=== PATIENT | male | born 1965 | race African-American/Black ===

== ENCOUNTER 2018-12-10 15:54 | Observation (INO) ==
[2018-12-10] MEDS ORDERED: ONDANSETRON INJ 2 MG/ML 2 ML VIAL IV STA (16:17)
[2018-12-10] MEDS ORDERED: ASPIRIN CHEW 324 MG PO STA (16:17)
[2018-12-10] MEDS ORDERED: SODIUM CHLORIDE 0.9% 1000ML 2,000 ML IV SCH (16:30)
[2018-12-10 16:32] LABS: Alanine Aminotransferase 31 U/L (12-78); Albumin Level 4.1 gm/dl (3.4-5.0); Aspartate Aminotransferase 23 U/L (15-37); Blood Urea Nitrogen 15 mg/dl (7-18); Calcium 8.9 mg/dl (8.5-10.1); Carbon Dioxide 29 mmol/L (21-32); Chloride 105 mmol/L (98-107); Creatinine Clr Calc Pharmacy 93.9 ml/min; Est GFR (African American) 91.6; Glucose 82 mg/dl (70-99); Potassium 3.9 mmol/L (3.5-5.1); Sodium 139 mmol/L (136-145)
[2018-12-10 16:37] LABS: Albumin Globulin Ratio 1.1 (0.9-2); Alkaline Phosphatase 67 U/L (45-117); Bilirubin,Total 2.4 mg/dl (0.2-1); Globulin 3.6 gm/dl (2.5-4.0); Total Protein 7.7 gm/dl (6.4-8.2); Troponin I < 0.015 ng/ml (0-0.045)
--- NOTE | 2018-12-10 16:44 | XRay Report ---
XR chest 1V portable CLINICAL HISTORY: Chest Pain COMPARISON STUDY: No previous studies for comparison. FINDINGS: The bones soft tissues and hemidiaphragms are normal. The cardiomediastinal silhouette is n ormal. The lungs are clear. The pulmonary vasculature is normal. IMPRESSION: Negative chest. The above report was generated using voice recognition software. It may contain grammatical, syntax or spelling errors. Electronically signed by: Ismael Lamb M.D. 12/10/2018 4:43 PM
[2018-12-10 16:51] LABS: Basophils # (auto) 0.01 K/uL (0-0.2); Basophils % (auto) 0.3 %; Eosinophils # (auto) 0.03 K/uL (0-0.5); Eosinophils % (auto) 0.8 %; Hematocrit (blood only) 38.5 % (42-52); Hemoglobin 12.8 g/dL (14.0-18.0); Lymphocytes # (auto) 1.76 K/uL (1.2-3.4); Lymphocytes % (auto) 46.8 %; Mean Corpuscular Hgb Conc 33.2 g/dL (32-36); Mean Corpuscular Volume 84.6 fL (80-100); Mean Platelet Volume 10.7 fL (7.4-10.4); Monocytes # (auto) 0.21 K/uL (0.11-0.59); Monocytes % (auto) 5.6 %; Neutrophils # (auto) 1.75 K/uL (1.4-6.5); Neutrophils % (auto) 46.5 %; Platelet Count 189 K/uL (130-400); RDW Coefficient of Variation 13.5 % (11.5-14.5); RDW Standard Deviation 41.5 fL (36.4-46.3); Red Blood Count 4.55 M/uL (4.7-6.1); White Blood Count 3.76 K/uL (4.8-10.8)
--- NOTE | 2018-12-10 18:49 | History & Physical Report ---
Date of Service December 10, 2018 Assessment & Plan (1) AV block, Mobitz 2: Soft call on whether this is type II second-degree AV block. There are elements on telemetry that appear to be 3: 1 conduction of the P wave, but there are also elements of MN interval prolongation which would indicate a Mobitz type block. Attempted to call EP on the phone; however, I could not reach Dr. Fatima. Will admit to observation on telemetry, trend troponins and EKGs, get echo, and consult cardiology in the morning. (2) Hyperlipidemia: Continue statin. (3) DVT prophylaxis: SCDs - Low DVT risk per admission calculator History of Present Illness Primary Care Provider: ESTHELA Reymundo 53-year-old male with a history of hyperlipidemia who presents with bradycardia and possible heart block. Patient reports is been in his normal state of health. He went to his annual physical with the [facility] physician and was noted to be bradycardic. The physician ordered an EKG which showed bradycardia and possible heart block, and he was sent to the emergency department for evaluation. In the emergency department telemetry strip shows type I versus type II second-degree AV block. The patient's heart rate is approximately 50 bpm; however, it did rise to 75 bpm with some mild exercise. Patient reports occasional sharp, transient, left-sided chest pain, though he has no associated symptoms such as lightheadedness, dizziness, nausea, vomiting, short of breath, or diaphoresis. The pains usually last for couple seconds and go away without any inciting event. Allergies Allergy/AdvReac Type Severity Reaction Status Date / Time No Known Allergies Allergy Unverified 12/10/18 17:03 Home Medications Home Medications Medication Instructions Recorded Confirmed Type rosuvastatin 10 mg PO DAILY 12/10/18 12/10/18 History Past Med/Surg History Medical History Hyperlipidemia (Chronic) Surgical History H/O knee surgery Family History Mother Pacemaker Social History Preferred Language: Arabic Feels Safe at Home: Yes Smoking Status: Former smoker Review of Systems Review of Systems: All systems reviewed & are unremarkable except as noted in HPI & below Physical Exam Constitutional: WD/WN, vitals as above Eyes: EOM intact bilaterally; no conjunctival abnormality ENMT: external ear and nose normal, oropharynx normal Neck: trachea midline, no thyromegaly normal visual inspection Respiratory: normal respiratory effort, lungs clear to auscultation no respiratory distress Cardiovascular: Rate/Rhythm: regular rate and + bradycardic Heart Sounds: normal S1 and normal S2; no murmur Gastrointestinal (Abdomen): Inspection/Auscultation: abdomen normal to ins pection; abdomen not distended Musculoskeletal: no cyanosis or clubbing, extremities motor strength 5/5 Skin: no rashes, warm and dry Neurologic: moves all extremities and awake Psychiatric: Orientation: alert, oriented to person and cooperative Results & Data Vital Signs (Past 12 Hours) Vital Signs Temp Pulse Resp BP Pulse Ox 12/10/18 17:31 49 L 18 99 12/10/18 17:30 51 L 18 150/80 H 98 12/10/18 17:00 49 L 13 148/78 H 100 12/10/18 16:30 52 L 17 150/87 H 97 12/10/18 16:11 36.8 C 52 L 20 176/86 H 99 12/10/18 16:00 45 L 19 176/86 H 99 PG Care Time/CCT Total # of Minutes Spent Total Time Spent with Patient: Total time spent is greater than 50% in coordination of care (as documented) at patient's floor/unit and/or counseling patient:
[2018-12-10] MEDS ORDERED: ACETAMINOPHEN 325 MG TAB PO PRN (20:03)
--- NOTE | 2018-12-10 23:12 | Emergency Department Note ---
Entered by Olga De Jesus acting as a scribe for Terry Santoyo DO History of Present Illness General Chief complaint: Cardiac Assessment Stated complaint: CARDIAC ASSESSMENT Source: patient History of Present Illness Provider complaint: chest pain Onset (ago): day(s) 3 Location: chest and left Severity: similar to prior episodes Pain Consistency: + intermittent Associated symptoms: + other (-dizziness, -arm pain, -jaw pain) The patient is a 53 year old male who presents to the Emergency Room with complaints of intermittent chest pain. The patient states that he went to his annual check-up and the doctor noticed something wrong with his EKG and referred him to the ED. The patient states that he has had sharp left sided chest pain for the past 2-3 days. He reports that the episodes last several seconds. He states that he has been experiencing these episodes for the past several years which have become more frequent. He states that this happens 2 times each month. The patient denies any arm pain, jaw pain, or dizziness. He states he has high cholesterol. He denies any recent travel. He reports that he has not smoked in 10 years. Home Medications Home Medications Medication Instructions Recorded Confirmed Type rosuvastatin 10 mg PO DAILY 12/10/18 12/10/18 History Allergies Allergy/AdvReac Type Severity Reaction Status Date / Time No Known Allergies Allergy Unverified 12/10/18 17:03 Past Med/Surg History Medical History Hyperlipidemia (Chronic) Surgical History H/O knee surgery Family History Mother Pacemaker Social History Preferred Language: Singaporean Communication Ability: Effective Beliefs That Will Affect Care: None Current Living Situation Comment: Inmate Feels Safe at Home: Yes Smoking Status: Former smoker Hx Alcohol Use: No Hx Substance Use: No Review of Systems See HPI for pertinent positives & negatives. and A total of 10 systems reviewed and were otherwise negative Physical Exam Vital Signs Vital Signs - 24 hr 12/10/18 16:00 12/10/18 16:11 12/10/18 16:17 Temperature 36.8 C Temperature Source Oral Sepsis Recent Fever Within 48 Hours No Sepsis New/Unexplained Change in Mental Status No Sepsis Action Taken by Nursing No Action Required Pulse Rate 45 L 52 L Pulse Rate from SpO2 Sensor Respiratory Rate 19 20 Blood Pressure 176/86 H 176/86 H Blood Pressure Mean 116 116 Pulse Oximetry 99 99 Oxygen Delivery Method Room Air Room Air 12/10/18 16:30 12/10/18 17:00 12/10/18 17:30 Temperature Temperature Source Sepsis Recent Fever Within 48 Hours Sepsis New/Unexplained Change in Mental Status Sepsis Action Taken by Nursing Pulse Rate 52 L 49 L 51 L Pulse Rate from SpO2 Sensor Respiratory Rate 17 13 18 Blood Pressure 150/87 H 148/78 H 150/80 H Blood Pressure Mean 108 101 103 Pulse Oximetry 97 100 98 Oxygen Delivery Method Room Air Room Air Room Air 12/10/18 17:31 12/10/18 18:00 12/10/18 18:31 Temperature Temperature Source Sepsis Recent Fever Within 48 Hours Sepsis New/Unexplained Change in Mental Status Sepsis Action Taken by Nursing Pulse Rate 49 L 44 L 57 L Pulse Rate from SpO2 Sensor 49 L Respiratory Rate 18 18 20 Blood Pressure 153/81 H 176/82 H Blood Pressure Mean 105 113 Pulse Oximetry 99 99 100 Oxygen Delivery Method Room Air Room Air GENERAL: Sitting up in bed, shackled, in [facility] sweats, talking in full sentences. EYE EXAM: normal conjunctiva, left eye dilated 5 mm and reactive OROPHARYNX: no exudate, no erythema, lips, buccal mucosa, and tongue normal and mucous membranes are moist NECK: supple, no nuchal rigidity, no adenopathy, non-tender LUNGS: Clear to auscultation. Normal chest wall mechanics HEART: no murmurs, S1 normal and S2 normal ABDOMEN: abdomen soft, non-tender, normo-active bowel sounds, no masses, no rebound or guarding. BACK: Back is symmetrical on inspection and there is no deformity, no midline tenderness, no CVA tenderness. SKIN: no rashes and no bruising UPPER EXTREMITIES: upper extremities are grossly normal. Radial pulses equal bilaterally. LOWER EXTREMITIES: No pitting edema. Calves equal bilaterally. NEURO EXAM: Normal sensorium, cranial nerves II-XII grossly intact, normal speech, no gross weakness of arms, no gross weakness of legs. Course 1611: The patient was evaluated in room B8, and a complete history and physical examination were performed. 1749: I discussed the patient's case with Dr. Alvarez- [facility] Hospitalist, he will accept the patient for further evaluation. Consultations Consultation #1: Dr. Garner [facility] Hospitalist Time: 17:50 Administered Medications Discontinued Medications Aspirin (Aspirin) 324 mg PO NOW STA Stop: 12/10/18 16:18 Last Admin: 12/10/18 16:29 Dose: 324 mg Documented by: [id number] Sodium Chloride (Nss 1000ml) 2,000 mls @ 999 mls/hr IV .Q2H1M IFEOMA Stop: 12/10/18 18:30 Last Infusion: 12/10/18 18:30 Dose: 0 mls/hr Documented by: [id number] Admin: 12/10/18 16:29 Dose: 999 mls/hr Documented by: [id number] Ondansetron HCl (Zofran) 4 mg IV NOW STA Stop: 12/10/18 16:18 Last Admin: 12/10/18 16:29 Dose: 4 mg Documented by: [id number] Medical Decision Making Differential Diagnosis Differential diagnoses includes but is not limited to acute coronary syndrome, myocardial infarction, pericarditis, pulmonary embolus, aortic dissection, pneumonia, pneumothorax, musculoskeletal, shingles, esophageal. Medical Records Attestation: I reviewed the patient's medical records. Home Medications Current Medication List: was personally reviewed by me Laboratory Data Attestation: I reviewed the patient's lab results. Result diagrams: 12/10/18 16:00 12/10/18 16:00 Lab Results 12/10/18 12/10/18 Range/Units 16:00 16:00 WBC 3.76 L (4.8-10.8) K/uL RBC 4.55 L (4.7-6.1) M/uL Hgb 12.8 L (14.0-18.0) g/dL Hct 38.5 L (42-52) % MCV 84.6 (80-100) fL MCH 28.1 (25-34) pg MCHC 33.2 (32-36) g/dL RDW Std Deviation 41.5 (36.4-46.3) fL RDW Coeff of Dwayne 13.5 (11.5-14.5) % Plt Count 189 (130-400) K/uL MPV 10.7 H (7.4-10.4) fL Immature Gran % (Auto) 0.0 % Neut % (Auto) 46.5 % Lymph % (Auto) 46.8 % [place] % (Auto) 5.6 % Eos % (Auto) 0.8 % Baso % (Auto) 0.3 % Immature Gran # (Auto) 0.00 (0.00-0.02) K/uL Neut # (Auto) 1.75 (1.4-6.5) K/uL Lymph # (Auto) 1.76 (1.2-3.4) K/uL [place] # (Auto) 0.21 (0.11-0.59) K/uL Eos # (Auto) 0.03 (0-0.5) K/uL Baso # (Auto) 0.01 (0-0.2) K/uL Sodium 139 (136-145) mmol/L Potassium 3.9 (3.5-5.1) mmol/L Chloride 105 (98-107) mmol/L Carbon Dioxide 29 (21-32) mmol/L Anion Gap 5.0 (3-11) BUN 15 (7-18) mg/dl Creatinine 1.08 (0.6-1.4) mg/dl Est Cr Clr Drug Dosing 93.9 ml/min Est GFR ( Amer) 91.6 Est GFR (Non-Af Amer) 79.0 BUN/Creatinine Ratio 14.0 (10-20) Glucose 82 (70-99) mg/dl Calcium 8.9 (8.5-10.1) mg/dl Total Bilirubin 2.4 H (0.2-1) mg/dl AST 23 (15-37) U/L ALT 31 (12-78) U/L Alkaline Phosphatase 67 (45-117) U/L Troponin I < 0.015 (0-0.045) ng/ml Total Protein 7.7 (6.4-8.2) gm/dl Albumin 4.1 (3.4-5.0) gm/dl Globulin 3.6 (2.5-4.0) gm/dl Albumin/Globulin Ratio 1.1 (0.9-2) Lipase 87 (73-393) U/L Imaging Data Radiologist's Impression: Radiology results as stated below per my review and the radiologist's interpretation: XR chest 1V portable CLINICAL HISTORY: Chest Pain COMPARISON STUDY: No previous studies for comparison. FINDINGS: The bones soft tissues and hemidiaphragms are normal. The cardiome diastinal silhouette is normal. The lungs are clear. The pulmonary vasculature is normal. IMPRESSION: Negative chest. The above report was generated using voice recognition software. It may contain grammatical, syntax or spelling errors. Electronically signed by: Ismael Lamb M.D. 12/10/2018 4:43 PM ECG Data Attestation: I personally reviewed and interpreted this ECG as follows: Indication: chest pain Rate (beats per minute): 52 Rhythm: sinus bradycardia Findings: + other (normal axis) and + ST elevation (v2 with j point elevation in anterior and lateral leads) Blood Pressure Blood Pressure Findings: Elevated blood pressure Blood Pressure Disposition: further management by hospitalist JINNY Narrative Patient is a 53-year-old male who presents the ER with past medical history of hyperlipidemia referred in from the [facility] as the patient had chest pain 3 days ago had an EKG performed. EKG today showed recurrent concerning of arrhythmia and patient was transported here via EMS. IV was established blood work was obtained and showed a mild leukopenia at 3.7 thousand. No significant anemia. BMP along with LFTs bilirubin and lipase was remarkable for bilirubin of 2.4. Troponin was negative. Chest x-ray was unremarkable. EKG showed a sinus rhythm but rhythm strips from EMS showed a Mobitz type I along with what appeared to be a Mobitz type II. Discussed with cardiology and discussed with the hospitalist for observation due to the Mobitz type II. Impression & Plan AV block, Mobitz 1, AV block, Mobitz 2 Discharge Plan Visit Data *Final* Discharge Date/Time: 12/10/18 19:47 Chief Complaint: Cardiac Assessment Stated Complaint: CARDIAC ASSESSMENT ED Provider: Terry Santoyo Discharge Problem: AV block, Mobitz 1, AV block, Mobitz 2 Patient Disposition: Admitted As Inpatient Discharge Instructions Interventions: ED Discharge Assessment Last Done: 12/10/18 19:47 The scribe's documentation has been prepared under my direction and personally reviewed by me in its entirety. I confirm that the note above accurately reflects all work, treatment, procedures, and medical decision making performed by me.
[2018-12-11 07:06] LABS: Hematocrit (blood only) 39.1 % (42-52); Hemoglobin 13.1 g/dL (14.0-18.0); Mean Corpuscular Hgb Conc 33.5 g/dL (32-36); Mean Corpuscular Volume 85.4 fL (80-100); Mean Platelet Volume 10.2 fL (7.4-10.4); Platelet Count 166 K/uL (130-400); RDW Coefficient of Variation 13.5 % (11.5-14.5); RDW Standard Deviation 41.9 fL (36.4-46.3); Red Blood Count 4.58 M/uL (4.7-6.1); White Blood Count 3.46 K/uL (4.8-10.8)
[2018-12-11 07:37] LABS: BUN Creatinine Ratio 10.1 (10-20); Blood Urea Nitrogen 10 mg/dl (7-18); Carbon Dioxide 29 mmol/L (21-32); Chloride 107 mmol/L (98-107); Creatinine Clr Calc Pharmacy 98.5 ml/min; Est GFR (Non-African American) 83.7; Glucose 79 mg/dl (70-99); Magnesium 2.3 mg/dl (1.8-2.4); Sodium 140 mmol/L (136-145)
[2018-12-11 07:42] LABS: Troponin I < 0.015 ng/ml (0-0.045)
[2018-12-11] MEDS ORDERED: ROSUVASTATIN CALCIUM 10 MG TAB PO SCH (09:00)
--- NOTE | 2018-12-11 11:18 | Cardiology Consultation ---
Date of Consultation December 11, 2018 Assessment & Plan (1) AV block, Mobitz 1: Patient does have an element of conduction disease. 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 This is slightly unusual for a gentleman of his age without any known cardiac disease. Curiously, his mother did just receive a pacemaker. Whether he has some familial related conduction disease is unclear. He does not appear to suffer from a cardiomyopathy or other cardiac disease. I think his overall prognosis is good. Without any symptoms at this point, there is no clear indication for permanent pacing. However, given his age and degree of conduction disease I do suspect that over time he will develop some symptoms related to his AV node dysfunction and require pacing. We did discuss symptoms of which to be aware which would include an element of exertional intolerance, dizziness, lightheadedness or syncope. Clearly, agents which reduce av trinity function such as beta blockers, digoxin or calcium channel acosta should be avoided. At this point it seems that he could be safely discharged. Follow up in our clinic perhaps every 6 months would be reasonable to evaluate symptoms and conduction. Present on Admission?: Yes History of Present Illness Reason for Consultation: Bradycardia, conduction disease Requesting Physician: Antonio Attending Physician: Jaswant Alvarez MD History of Present Illness The patient is a 53-year-old gentleman without a known history of cardiac disease who [facility] for [facility]. The patient did state at that time that several weeks prior he had had symptoms of chest discomfort. This was a fairly focal discomfort in the precordial area. He states that it lasted for a few seconds and resolved. It was not associated with activity. He thinks he may have had 3 of these episodes over the preceding weeks. He has not had any recently. Based on his history and relative bradycardia an EKG was obtained. This was abnormal suggesting an element of conduction disease. He is therefore sent to our facility for evaluation. The patient is a some presently active individual. He exercises routinely and claims to be able to jog 1-2 miles on a regular basis. He did not report any symptoms associated with exertion. He states that at extremes of exertion he will have some dyspnea but he feels this is appropriate for his level of activity. He did not report any symptoms of chest discomfort or chest tightness associated with exercise. He denied symptoms of dizziness or lightheadedness. He cannot recall suffering a syncopal episode. He does have a rare and fleeting sensation of a palpitation, but again this last a few seconds and is not a ssociated with any specific activity. Allergies Allergy/AdvReac Type Severity Reaction Status Date / Time No Known Allergies Allergy Unverified 12/10/18 17:03 Home Medications Home Medications Medication Instructions Recorded Confirmed Type rosuvastatin 10 mg PO DAILY 12/10/18 12/10/18 History Patient History Medical History Hyperlipidemia (Chronic) Surgical History H/O knee surgery Family History Mother Pacemaker Social History Preferred Language: Telugu Communication Ability: Effective Beliefs That Will Affect Care: None Current Living Situation Comment: Inmate Feels Safe at Home: Yes Smoking Status: Former smoker Hx Alcohol Use: No Hx Substance Use: No Review of Systems Review of Systems: All systems reviewed & are unremarkable except as noted in HPI & below No lower extremity edema. No recent constitutional symptoms. No recent fevers or chills. No orthopnea. Physical Exam Physical Exam: The patient is alert and oriented. Mood and affect appeared normal. He answered all questions appropriately. HEENT: Pupils are equal and reactive to light and accommodation. Extraocular movements are intact. The sclerae are anicteric. Neuro: Cranial nerves intact Neck: Patient's neck is supple. He has palpable carotid pulses bilaterally without bruits on auscultation. There is no evidence of jugular venous distention. The thyroid is not enlarged. Lungs: Clear to auscultation bilaterally. He has good air movement without use of accessory muscles. No rales wheezes or rhonchi. Cardiac: Heart demonstrates a regular rate and rhythm with occasional skipped beat. Normal S1 and S2. No murmurs on examination. Pulses: The patient has palpable radial pulses bilaterally that are equal in intensity Extremities: There was no evidence of hypoperfusion. There is no cyanosis or clubbing. There is no edema. Skin: I did not appreciate any rashes on examination today. Results & Data Vital Signs (Past 12 Hours) Vital Signs Temp Pulse Pulse Resp BP Pulse Ox 12/11/18 11:06 36.6 C 50 L 18 132/81 98 12/11/18 07:16 46 L 12/11/18 07:06 36.6 C 47 L 16 150/78 H 97 12/11/18 05:14 50 L 12/11/18 04:00 36.6 C 52 L 18 117/69 97 Laboratory Results Abnormal Lab Results 12/10/18 12/10/18 12/10/18 16:00 16:00 21:20 WBC 3.76 L RBC 4.55 L Hgb 12.8 L Hct 38.5 L MCV 84.6 MCH 28.1 MCHC 33.2 RDW Std Deviation 41.5 RDW Coeff of Dwayne 13.5 Plt Count 189 MPV 10.7 H Immature Gran % (Auto) 0.0 Neut % (Auto) 46.5 Lymph % (Auto) 46.8 [place] % (Auto) 5.6 Eos % (Auto) 0.8 Baso % (Auto) 0.3 Immature Gran # (Auto) 0.00 Neut # (Auto) 1.75 Lymph # (Auto) 1.76 [place] # (Auto) 0.21 Eos # (Auto) 0.03 Baso # (Auto) 0.01 Sodium 139 Potassium 3.9 Chloride 105 Carbon Dioxide 29 Anion Gap 5.0 BUN 15 Creatinine 1.08 Est Cr Clr Drug Dosing 93.9 Est GFR ( Amer) 91.6 Est GFR (Non-Af Amer) 79.0 BUN/Creatinine Ratio 14.0 Glucose 82 Calcium 8.9 Magnesium Total Bilirubin 2.4 H AST 23 ALT 31 Alkaline Phosphatase 67 Troponin I < 0.015 Total Protein 7.7 Albumin 4.1 Globulin 3.6 Albumin/Globulin Ratio 1.1 Lipase 87 Nasal Screen MRSA (PCR) Negative 12/11/18 12/11/18 06:53 06:53 WBC 3.46 L RBC 4.58 L Hgb 13.1 L Hct 39.1 L MCV 85.4 MCH 28.6 MCHC 33.5 RDW Std Deviation 41.9 RDW Coeff of Dwayne 13.5 Plt Count 166 MPV 10.2 Immature Gran % (Auto) Neut % (Auto) Lymph % (Auto) [place] % (Auto) Eos % (Auto) Baso % (Auto) Immature Gran # (Auto) Neut # (Auto) Lymph # (Auto) [place] # (Auto) Eos # (Auto) Baso # (Auto) Sodium 140 Potassium 4.0 Chloride 107 Carbon Dioxide 29 Anion Gap 4.0 BUN 10 D Creatinine 1.03 Est Cr Clr Drug Dosing 98.5 Est GFR ( Amer) 97.0 Est GFR (Non-Af Amer) 83.7 BUN/Creatinine Ratio 10.1 Glucose 79 Calcium 9.0 Magnesium 2.3 Total Bilirubin AST ALT Alkaline Phosphatase Troponin I < 0.015 Total Protein Albumin Globulin Albumin/Globulin Ratio Lipase Nasal Screen MRSA (PCR) Diagnostic Findings Chest x-ray obtained at the time of admission was normal Echocardiogram performed today revealed preserved LV systolic function with mild left ventricular hypertrophy. No significant valvular heart disease. ECG Additional Comments: I performed extensive reviewed the patient's EKGs and rhythm monitoring. He has first-degree AV block and occasional Wenckebach conduction.
--- NOTE | 2018-12-11 17:04 | Discharge Summary ---
Date of Service December 11, 2018 Admission HPI Per Admitting Provider 53-year-old male with a history of hyperlipidemia who presents with bradycardia and possible heart block. Patient reports is been in his normal state of health. He went to his annual physical with the [facility] physician and was noted to be bradycardic. The physician ordered an EKG which showed bradycardia and possible heart block, and he was sent to the emergency department for evaluation. In the emergency department telemetry strip shows type I versus type II second-degree AV block. The patient's heart rate is approximately 50 bpm; however, it did rise to 75 bpm with some mild exercise. Patient reports occasional sharp, transient, left-sided chest pain, though he has no associated symptoms such as lightheadedness, dizziness, nausea, vomiting, short of breath, or diaphoresis. The pains usually last for couple seconds and go away without any inciting event. Principal Diagnosis AV block Discharge Exam Constitutional WD/WN, vitals as above Eyes EOM intact bilaterally; no conjunctival abnormality ENMT external ear and nose normal, oropharynx normal Neck trachea midline, no thyromegaly normal visual inspection Respiratory normal respiratory effort, lungs clear to auscultation no respiratory distress Cardiovascular Rate/Rhythm: regular rate and + bradycardic Heart Sounds: normal S1 and normal S2; no murmur Gastrointestinal (Abdomen) Inspection/Auscultation: abdomen normal to inspection; abdomen not distended Musculoskeletal no cyanosis or clubbing, extremities motor strength 5/5 Skin no rashes, warm and dry Neurologic moves all extremities and awake Psychiatric Orientation: alert, oriented to person and cooperative Discharge Data Allergies Allergy/AdvReac Type Severity Reaction Status Date / Time No Known Allergies Allergy Unverified 12/10/18 17:03 Consultations 12/10/18 17:57 ED Decision to Admit Stat 12/10/18 20:03 Consult Cardiology Routine Hospital Course (1) AV block, Mobitz 2: Normal echo with EF 55-60%. No valvular disease. - Seen by electrophysiology who feel this is 1st degree and 2nd degree Type I (Wenchebach) AV blocks. No need for pacemaker. Could get annual EKGs to monitor. (2) Hyperlipidemia: Continue statin. (3) DVT prophylaxis: SCDs - Low DVT risk per admission calculator Total Time Total Time Spent Total Time Spent (In Minutes): 20 Discharge Plan Discharge Items [facility] Disposition: [facility] Reason For Visit: BRADYCARDIA,HEART BLOCK Discharge Diagnosis: Bradycardia, 1st degree AV block mixed with 2nd degree AV block Mobitz type I ([place]enckebach) Discharge Goals: Diagnostic testing Activity: Resume your previous activity Exercise/Sports: As tolerated Non-emergency contact: Primary Care Provider Call non-emergency contact if: your symptoms worsen Follow-up/Referrals: Reymundo PROCTOR [Primary Care Provider] - Diet: Regular Addtl Provider Instructions: Mr. Loyd was seen here for AV node delay. He was determined to have a 1st degree AV block mixed with 2nd degree AV block Mobitz type I (Wenckebach). He had a normal echocardiogram. He was seen by an ic designer custom who did not think he needed any additional work-up. He could get EKGs with his annual physical, but no need for a pacemaker any time soon unless he starts to have symptoms of lightheadedness, dizziness, or other signs of symptomatic bra dycardia. Prescriptions: Continued rosuvastatin 10 mg Tablet 10 mg PO DAILY RF: 0 Stand-Alone Forms: [facility] Admission Data Admit Date/Time: 12/10/18 18:43 Attending Provider: Jaswant Alvarez Admit Provider: Jaswant Alvarez Primary Care Provider: Reymundo PROCTOR Other Providers: Sedrick Watkins ; Armando Lawton Service: Telemetry Medical Other Interventions: Discharge Summary Assessment (RN) Last Done: 12/11/18 12:41 DC Date/Time DO NOT enter until pt leaves facility: 12/11/18 14:01
== END 2018-12-11 14:01 ==
LOC: ED 15:54 → 2W 15:54